=== PATIENT | female | born 1955 | race Caucasian/White ===

== ENCOUNTER → 2016-07-14 | Outpatient (CLI) | payer BC ==
[~2016-07-14] MED LIST: CZR50 PO; HYDR-5688 PO; IBUP-1050 PO; METO1TAB31 PO; OMEP20TA14 PO
--- NOTE | 2016-07-14 09:53 | DIAGNOSTIC IMAGING REPORT ---
MRI OF THE CERVICAL SPINE WITHOUT CONTRAST CLINICAL HISTORY: Left C4 radiculopathy. Neck pain radiating into upper extremities. COMPARISON: Cervical spine radiographs January 11, 2008. TECHNIQUE: Utilizing a 0.7 Mari magnet and dedicated coil, multiplanar, multiecho imaging of the cervical spine was performed without IV contrast. FINDINGS: There is straightening of the normal cervical lordosis. No marrow replacement is present. A T1 and T2 hyperintense lesion within the C3 vertebral body may reflect a hemangioma. Visualized portions of the posterior fossa are unremarkable. This study is mildly compromised by artifact. Cervical cord signal and caliber are normal. There is no intracanalicular mass or fluid collection. There are small disc protrusions at several levels within the upper thoracic spine that result in mild narrowing of the canal. Paravertebral soft tissues are unremarkable with exception of a 1.3 x 1.2 cm cystic abnormality adjacent to the left C3-C4 facet joint. This may reflect a synovial cyst. No intracanalicular mass or fluid collection is present. C2-C3: There is minimal posterior disc osteophyte complex and mild facet arthrosis. The central canal is patent. There is mild narrowing of the left neural foramen. C3-C4: Posterior disc osteophyte complex results in mild narrowing of the central canal. There is severe narrowing of the left neural foramen due to uncovertebral hypertrophy and facet arthrosis. There is also severe narrowing of the right neural foramen. C4-C5: The central canal is patent. There is mild narrowing of the left neural foramen. There is bony prominence adjacent to the left C4-C5 facet joint. A 2.2 cm mass-like abnormality at this level is shown on the sagittal T2-weighted sequence image 15 of 16 C5-C6: Mild posterior disc osteophyte results in mild narrowing of the central canal. There is moderate right and moderate to severe severe left neural foraminal stenosis predominantly due to uncovertebral hypertrophy. C6-C7: Posterior disc osteophyte complex results in mild narrowing of the central canal. There is moderate narrowing of both neural foramen. C7-T1: Central canal is patent. There is moderate to severe narrowing of the right neural foramen likely due to facet disease. IMPRESSION: 1. Mild multilevel degenerative disc disease with mild multilevel central canal stenosis. Normal cervical cord signal. 2. Severe multilevel facet arthrosis, most pronounced at the left C3-C4 and C4-C5 facet joints. A 1.3 x 1.2 cm cystic abnormality posterior to the left C3-C4 facet likely reflects a synovial cyst which is of doubtful significance as it is extracanalicular. 3. 2.2 cm bony mass-like abnormality associated with the left C4-C5 facet joint. This could simply represent bony hypertrophy related to facet arthrosis. An osseous lesion with soft tissue extension could appear similar. A CT of the cervical spine is recommended. 4. Severe multilevel neural foraminal stenosis, most pronounced at the C3-C4 level, as detailed above. Electronically signed by: Bernardo Forte M.D. 07/14/2016 9:51 AM Dictated Date/Time: 07/14/2016 9:03 AM
== END | disposition home or self-care (01) ==
LOC: C.OPENMRI 07:43
PROVIDERS: ATTEND Physical Medicine & Rehabilitation
DX: M48.02 Spinal stenosis, cervical region (principal); M54.12 Radiculopathy, cervical region; M12.9 Arthropathy, unspecified; R93.7 Abnormal findings on diagnostic imaging of other parts of musculoskeletal system

== ENCOUNTER → 2016-07-26 | Outpatient (CLI) | payer BC ==
--- NOTE | 2016-07-26 08:52 | DIAGNOSTIC IMAGING REPORT ---
CT SCAN OF THE CERVICAL SPINE CLINICAL HISTORY: Cervical spinal stenosis. COMPARISON STUDY: MRI of the cervical spine dated 07/14/2016. TECHNIQUE: CT scan of the cervical spine is performed from the skull base to the upper thoracic spine. Images are reviewed in the axial, sagittal, and coronal planes. IV contrast was not administered for this examination. CT DOSE: 286.98 mGy.cm FINDINGS: Skeletal structures: The skeletal structures are well mineralized. There is no evidence of fracture or subluxation involving the cervical spine. Vertebral body height and alignment are maintained. There is straightening of cervical lordosis. The odontoid process and lateral masses are intact. The atlantoaxial articulation is preserved noting productive degenerative change with bony overgrowth, sclerosis, and narrowing of the interval. The spinous processes appear intact. Anterior osteophytes are seen from C4 through C7. There is moderate multilevel cervical spondylosis. Uncovertebral and facet arthropathy contribute to neural foraminal narrowing at most levels. This is severe bilaterally at C3-C4 and on the left at C4-C5. The abnormality questioned at the left C4-C5 facet joint is consistent with bony overgrowth from facet arthropathy. There is erosive change with posterior fluid versus a synovial cyst seen at the left C3-C4 facet. No destructive bony lesion is seen. Intervertebral discs: Mild degenerative disc space narrowing seen from C4-C5 through C6-C7. The remaining disc spaces appear well maintained. Central canal: Small posterior disc osteophyte complexes at C3-C4, C4-C5, C5-C6, and C6-C7 likely contribute to minimal acquired compromise the central canal. This was better assessed on the 07/14/2016 MRI. Soft tissues: The prevertebral and paraspinous soft tissues are within normal limits. Calvarium: The visualized calvarium at the skull base appears intact. Brain parenchyma: Partially visualized brain parenchyma the skull base is within normal limits. Sinuses and mastoids: The visualized paranasal sinuses are clear. The mastoid air cells are well pneumatized. Lung apices: Clear as visualized. IMPRESSION: 1. There is no evidence of fracture or subluxation involving the cervical spine. 2. The bony abnormality questioned at the left C4-C5 facet joint corresponds to bony overgrowth from facet arthropathy. No concerning/destructive bony lesion is seen. 3. Multilevel cervical spondylosis as above. Electronically signed by: Otf Chang M.D. 07/26/2016 8:51 AM Dictated Date/Time: 07/26/2016 8:43 AM
== END | disposition home or self-care (01) ==
LOC: C.CTS 08:13
PROVIDERS: ATTEND Physical Medicine & Rehabilitation
DX: M48.02 Spinal stenosis, cervical region (principal); M54.12 Radiculopathy, cervical region

== ENCOUNTER → 2017-04-18 | Outpatient (CLI) | payer BC ==
--- NOTE | 2017-04-19 15:17 | MAMMOGRAPHY REPORT ---
BILATERAL DIGITAL SCREENING MAMMOGRAM TOMOSYNTHESIS WITH CAD: 04/18/2017 CLINICAL HISTORY: Routine screening. TECHNIQUE: Breast tomosynthesis in addition to standard 2D mammography was performed. Current study was also evaluated with a Computer Aided Detection (CAD) system. COMPARISON: Comparison is made to exams dated: 04/15/2016 mammogram, 04/03/2015 mammogram, 04/02/2014 mammogram, 03/29/2013 mammogram, 03/30/2012 mammogram, and 03/27/2012 mammogram - [facility]. BREAST COMPOSITION: The tissue of both breasts is almost entirely fatty. FINDINGS: There is stable nodularity in the breasts. No suspicious spiculated or irregular mass, arc hitectural distortion or cluster of microcalcifications is seen. IMPRESSION: ACR BI-RADS CATEGORY 1: NEGATIVE There is no mammographic evidence of malignancy. A 1 year screening mammogram is recommended. The pa tient will receive written notification of the results. Approximately 10% of breast cancers are not detected with mammography. A negative mammographic report should not delay biopsy if a clinically suggestive mass is present. Kelsey Patterson M.D. ay/:04/18/2017 16:14:59 [employer] Consultant: Elisa PEARSON(Anne)(M), [facility] letter sent: Normal 1/2 BI-RADS Code: ACR BI-RADS Category 1: Negative
== END | disposition home or self-care (01) ==
LOC: C.MAMM 07:30
PROVIDERS: ATTEND Obstetrics & Gynecology
DX: Z12.31 Encounter for screening mammogram for malignant neoplasm of breast (principal)

== ENCOUNTER → 2017-06-09 | Outpatient (CLI) | payer BC ==
[~2017-06-09] MED LIST changes: +MAGN250T9 PO; +METO-478 PO; -METO1TAB31 PO
== END | disposition home or self-care (01) ==
LOC: C.PAPS 09:38
PROVIDERS: ATTEND Obstetrics & Gynecology
DX: Z01.419 Encounter for gynecological examination (general) (routine) without abnormal findings (principal); N95.2 Postmenopausal atrophic vaginitis

== ENCOUNTER → 2017-06-16 | Day surgery (SDC) | payer BC ==
[2017-05-16 13:09] VITALS: Ht 167.6 cm; Wt 113.6 kg
[~2017-06-16] VITALS: Ht 167.6 cm; Wt 113.6 kg
[~2017-06-16] MED LIST changes: +IOPAMIDOL INJ 61% 15 ML VIAL ONE; +LIDOCAINE HCL 1% MPF 5 ML VIAL ONE; +SODIUM CHLORIDE 0.9% INJ 10 ML VIAL ONE
--- NOTE | 2017-06-16 14:46 | History & Physical Bridge - SC ---
H&P Re-Evaluation Bridge Note: I have examined the patient, reviewed the History & Physical and in the interval since the performance of the History & Physical I have noted the following changes of clinical significance: No changes noted
[2017-06-16 15:10] VITALS: TEMP 37.2
--- NOTE | 2017-06-16 15:14 | Discharge Instructions ---
Discharge Instructions Date of Service Jun 16, 2017. Visit Reason for Visit: Lumbar Radiculopathy Discharge Discharge Diagnosis / Problem: left leg pain Discharge Goals Goal(s): Decrease discomfort, Improve function Medications Stopped Medications Name(s): HELD IBUPROFEN FOR THREE DAYS Activity Recommendations Activity Limitations: resume your previous activity Anesthesia . Post Anesthesia Instructions: If you have had General Anesthesia or IV Sedation: * Do not drive today. * Resume driving when surgeon permits. * Do not make important decisions or sign legal documents today. * Call surgeon for: 1. Temperature elevations greater than 101 degrees F. 2. Uncontrollable pain. 3. Excessive bleeding. 4. Persistent nausea and vomiting. 5. Medication intolerance (nausea, vomiting or rash). * For nausea and vomiting use only clear liquids such as: tea, soda, bouillon until nausea subsides, then gradually increase diet as tolerated. * If you have any concerns or questions, call your surgeon's office. If physician is unavailable and it is an emergency, call 911 or go to the nearest emergency room. . Diet Recommendations Recommended Home Diet: resume previous diet Procedures Procedures Performed: Lumbar Epidural Steroid Injection Pending Studies Studies pending at discharge: no Medical Emergencies . Who to Call and When: Medical Emergencies: If at any time you feel your situation is an emergency, please call 911 immediately. . Non-Emergent Contact Non-Emergency issues call your: Specialist . . "Provider Documentation" section prepared by Marvin Cunningham. .
[2017-06-16 15:21] VITALS: BP 149/99; PULSE 97; O2SAT 96
--- NOTE | 2017-06-16 15:53 | OPERATIVE REPORT ---
DATE OF OPERATION: 06/16/2017 PREOPERATIVE DIAGNOSIS: L5-S1 disc disease with recurrent left S1 radiculopathy. POSTOPERATIVE DIAGNOSIS: Same. PROCEDURE: Left paramedian L5-S1 intralaminar epidural steroid injection under fluoroscopic guidance. SURGEON: Dr. Marvin Cunningham. INDICATIONS: The patient is a 61-year-old white female who has received an epidural injection for an S1 radiculopathy about 2 years ago. She reports she has done well since that time until recently the pain is starting to return and be problematic for her. She presents today for an epidural steroid injection to provide her with relief of ongoing radicular complaints. PHYSICAL EXAMINATION: Pleasant female seated comfortably. She has some tenderness to palpation of her left sciatic notch. She has pain inhibition with straight leg testing of her left lower extremity with decreased subjective sensation in the left L5 dermatomal distribution. CONSENT: Verbal and written consent was obtained from the patient. Risks and benefits were reviewed. Risks include but are not limited to epidural abscess, epidural hematoma, allergic reaction, dural puncture. The patient wishes to proceed. PROCEDURE: The patient was taken back to the special procedures room of [facility]. She was maintained in a prone position. Backside was cleansed with Betadine x3 and a dry sterile dressing was applied. Fluoroscope was used to identify the L5-S1 intralaminar space. Overlying skin on the left side was anesthetized with 4 mL of lidocaine 1% with a 25 gauge 1.5-inch needle. A 22 gauge 4.25-inch Tuohy needle was then directed down towards the intralaminar space. It was advanced under lateral fluoroscopic guidance. Loss of resistance was noted at a depth of 10.5 cm. Isovue-300 contrast 1 mL was injected in which demonstrated epidural uptake pattern which was confirmed with both AP and lateral views. She then underwent injection after negative aspiration of 40 mg of Depo-Medrol and 4 mL of preservative free sodium chloride. Injection was well tolerated. DISPOSITION: 1. The patient is taken out into the discharge recovery area where she will be discharged home once discharge criteria have been met. 2. Follow up in the [facility] office in 4 weeks' time. I attest to the content of the Intraoperative Record and any orders documented therein. Any exception s are noted below.
== END | disposition home or self-care (01) ==
LOC: X.SURG 13:55
PROVIDERS: ATTEND Physical Medicine & Rehabilitation
DX: M51.17 Intervertebral disc disorders with radiculopathy, lumbosacral region (principal)

== ENCOUNTER → 2017-08-22 | Outpatient (CLI) | payer BC ==
[~2017-08-22] MED LIST changes: -IOPAMIDOL INJ 61% 15 ML VIAL ONE; -LIDOCAINE HCL 1% MPF 5 ML VIAL ONE; -SODIUM CHLORIDE 0.9% INJ 10 ML VIAL ONE
== END | disposition home or self-care (01) ==
LOC: C.RDSM 20:25
PROVIDERS: ATTEND Physical Medicine & Rehabilitation
DX: M25.552 Pain in left hip (principal); Z91.030 Bee allergy status

== ENCOUNTER 2019-01-12 05:17 | Inpatient (IN) ==
--- NOTE | 2018-12-12 09:09 | Anesthesiology Consultation ---
Date of Service December 12, 2018 Assessment & Plan (1) Encounter for pre-operative examination: Chart Review Chart Review: Acceptable Risk for Surgery and Patient seen in Pre Admission Testing Teaching & Discussion Pre-Anesthesia Teaching/Discussion Notes: Instructed NPO after midnight before surgery,except medications with 15 cc of water. Medication instructions provided according to the PAT guidelines. History Surgery Operation Date: 01/12/19 08:35 Proposed Procedures p Left Anterior Total Hip Replacement - Aguila Saenz, Height/Weight Height: 5 ft 6 in Weight: 115.1 kg Allergies Allergy/AdvReac Type Severity Reaction Status Date / Time Penicillins AdvReac Mild YEAST Verified 12/08/18 11:07 INFECTION Sulfa (Sulfonamide AdvReac Unknown YEAST Verified 12/08/18 11:07 Antibiotics) INFECTION Medications Home Medications Medication Instructions Recorded Confirmed Last Taken hydrocodone-acetaminophen [[place]] 1 tab PO Q4 PRN 03/03/18 12/08/18 05/02/18 losartan 50 mg PO QAM 03/03/18 12/08/18 07/27/18 metoprolol succinate 25 mg PO QAM 03/03/18 12/08/18 07/27/18 omeprazole 20 mg PO HS 03/03/18 12/08/18 05/02/18 Cbd + Thc Oil 1 dose PO QAM 12/08/18 12/08/18 Unknown diclofenac sodium 75 mg PO BID 12/08/18 12/08/18 Unknown Past Medical History Medical History Cancer BCC, SCC Chronic back pain GERD (gastroesophageal reflux disease) CONTROLLED Hypertension Morbid obesity Spinal stenosis CERVICAL/LUMBAR Exercise / Class Metabolic Activity III < 4 Walking/Shop/Light housework Past Family History Family History Father Family history of diabetes mellitus Past Surgical History Surgical History H/O Moh's micrographic surgery for skin cancer X3 H/O arthroscopy of left knee H/O arthroscopy of right knee H/O removal of cyst RIGHT WRIST History of appendectomy History of cholecystectomy History of colonoscopy History of tooth extraction WISDOM TEETH Past Anesthesia History No Hx of Anesthesia Complications (EXCEPT PONV) and No Family Hx of Anesthesia Complications History of PONV No Hx of Motion Sickness and History of PONV Social History Smoking Status: Former smoker tobacco type: cigarettes Do You Dip or Chew Tobacco: No Smoking End Date: QUIT 1997 Hx Alcohol Use: Yes Alcohol type: beer, wine and hard liquor alcohol intake frequency: a few times a month Hx Substance Use: Yes substance use type: marijuana Substance Use Type Other:: medical (for joint pain) oil under tongue daily; aware of [facility] protocol Review of Systems Reflux controlled. Patient denies chest pain, shortness of breath, cough, wheezing, palpitations. Physical Exam Vital Signs VITALS BP 120/82 P 86 TEMP 98.4 SP02 95%RA RESP 18 PHYSICAL Decreased cervical extension 2/2 arthritis Full TMJ range of motion. TMD 3 finger breaths Mallampati Score 2 Dentition: missing molars, several crowns "all over." 2 permanent implants on sides Lungs: clear throughout to auscultation Cardiac: regular rate and rhythm, no murmurs noted Spine: normal Carotid arteries: negative bruit Extremities: no edema Testing Laboratory Results 12/12/18 09:30 12/12/18 11:14 PT 9.9 Seconds (9.0-12.0) 12/12/18 09:30 INR 1.0 (0.9-1.1) 12/12/18 09:30 APTT 24.8 Seconds (21.0-31.0) 12/12/18 09:30 Blood Type A Positive 12/12/18 09:30 Antibody Screen NEGATIVE 12/12/18 09:30 12/27/18 SODIUM 142 POTASSIUM 5.1 CHLORIDE 104 CO2 26 BUN 18 CREATININE 1.2 (PCP repeated labs; creatinine significantly increased on recheck) GLUCOSE 95 Electrocardiogram Date: 12/12/18 Findings: + NSR @ (84) Chest X-Ray Date: 12/12/18 Findings: + NAD Atherosclerosis of the aortic arch.
--- NOTE | 2018-12-12 09:12 | PAT Medication Instructions ---
Medication Instructions Date of Service December 12, 2018 Home Medications hydrocodone-acetaminophen [[place]] 1 tab PO Q4 PRN losartan 50 mg PO QAM metoprolol succinate 25 mg PO QAM omeprazole 20 mg PO HS Cbd + Thc Oil 1 dose PO QAM diclofenac sodium 75 mg PO BID Continue as directed Cbd + Thc Oil 1 dose PO QAM ASK your surgeon for instructions diclofenac sodium 75 mg PO BID DO NOT take the morning of surgery losartan 50 mg PO QAM Take morning of surgery With a small sip of water, OTHERWISE NOTHING TO EAT OR DRINK AFTER MIDNIGHT: hydrocodone-acetaminophen [[place]] 1 tab PO Q4 PRN (okay to take up to 4 hours prior to surgery if needed) metoprolol succinate 25 mg PO QAM Take evening before surgery hydrocodone-acetaminophen [[place]] 1 tab PO Q4 PRN (if needed) omeprazole 20 mg PO HS Other Notes If you have any questions please call us at [phone] or [phone] or [phone] or [phone]
--- NOTE | 2018-12-12 10:18 | XRay Report ---
XR chest 2V routine CLINICAL HISTORY: 63 years-old Female presenting with preoperative evaluation. TECHNIQUE: PA and lateral views of the chest were obtained. COMPARISON: 01/11/2008. FINDINGS: Atherosclerosis of the aortic arch. Cardiac silhouette normal in size. Lungs and pleural spaces clear . Degenerative changes of the thoracic spine. Cholecystectomy clips noted. IMPRESSION: 1. No acute cardiopulmonary disease. Electronically signed by: Shaan Bal M.D. 12/12/2018 10:16 AM
[2018-12-12 11:36] LABS: Basophils # (auto) 0.01 K/uL (0-0.2); Basophils % (auto) 0.2 %; Eosinophils # (auto) 0.04 K/uL (0-0.5); Eosinophils % (auto) 0.8 %; Hematocrit (blood only) 37.1 % (37-47); Hemoglobin 12.4 g/dL (12.0-16.0); Immature Granulocytes # (auto) 0.01 K/uL (0.00-0.02); Immature Granulocytes % (auto) 0.2 %; Lymphocytes # (auto) 1.75 K/uL (1.2-3.4); Lymphocytes % (auto) 35.8 %; Mean Corpuscular Hgb Conc 33.4 g/dL (32-36); Mean Corpuscular Volume 90.9 fL (80-100); Mean Platelet Volume 10.1 fL (7.4-10.4); Monocytes # (auto) 0.34 K/uL (0.11-0.59); Neutrophils # (auto) 2.74 K/uL (1.4-6.5); Platelet Count 259 K/uL (130-400); RDW Coefficient of Variation 12.5 % (11.5-14.5); RDW Standard Deviation 41.9 fL (36.4-46.3); Red Blood Count 4.08 M/uL (4.2-5.4); White Blood Count 4.89 K/uL (4.8-10.8)
[2018-12-12 11:48] LABS: Partial Thromboplastin Ratio 0.9; Partial Thromboplastin Time 24.8 Seconds (21.0-31.0); Prothrombin Time 9.9 Seconds (9.0-12.0)
[2018-12-12 12:02] LABS: BUN Creatinine Ratio 24.8 (10-20); Calcium 10.1 mg/dl (8.5-10.1); Creatinine Clr Calc Pharmacy 48.2 ml/min; Est GFR (African American) 40.5; Est GFR (Non-African American) 34.9; Potassium 4.5 mmol/L (3.5-5.1)
--- NOTE | 2019-01-11 15:48 | History & Physical Report ---
Date of Service January 11, 2019 Assessment & Plan (1) Osteoarthritis of left hip: We will proceed with a left anterior total hip arthroplasty. Postoperatively she will be placed on aspirin for DVT prophylaxis and kept overnight in the hospital for postoperative medical management. She plans to use energy physical therapy upon discharge. Present on Admission?: Yes History of Present Illness Chief Complaint: Primary osteoarthritis of the left hip Primary Care Provider: Barbie Ordaz DO [place] is a pleasant 63-year-old female who is been dealing with chronic left hip pain. It is been going on for several years. X-rays and physical examination are diagnostic for primary osteoarthritis of her left hip. After failing extensive conservative treatment, and after discussions in the office, she is elected to proceed with a left total hip arthroplasty. Allergies Allergy/AdvReac Type Severity Reaction Status Date / Time Penicillins AdvReac Mild YEAST Verified 12/08/18 11:07 INFECTION Sulfa (Sulfonamide AdvReac Mild YEAST Verified 01/08/19 12:26 Antibiotics) INFECTION Home Medications Home Medications Medication Instructions Recorded Confirmed Type hydrocodone-acetaminophen [[place]] 1 tab PO Q4 PRN 03/03/18 12/08/18 History losartan 50 mg PO QAM 03/03/18 12/08/18 History metoprolol succinate 25 mg PO QAM 03/03/18 12/08/18 History omeprazole 20 mg PO HS 03/03/18 12/08/18 History Cbd + Thc Oil 1 dose PO QAM 12/08/18 12/08/18 History diclofenac sodium 75 mg PO BID 12/08/18 12/08/18 History Past Med/Surg History Medical History Cancer BCC, SCC Chronic back pain GERD (gastroesophageal reflux disease) CONTROLLED Hypertension Morbid obesity Spinal stenosis CERVICAL/LUMBAR Surgical History H/O Moh's micrographic surgery for skin cancer X3 H/O arthroscopy of left knee H/O arthroscopy of right knee H/O removal of cyst RIGHT WRIST History of appendectomy History of cholecystectomy History of colonoscopy History of tooth extraction WISDOM TEETH Family History Father Family history of diabetes mellitus Social History Preferred Language: Sami Communication Ability: Effective Technical Solution Architect Required: No Beliefs That Will Affect Care: None Current Living Situation: Spouse Other Information That Helps Us Care for You: No Feels Safe at Home: Yes Safety Concerns: Feels Safe At This Time Smoking Status: Former smoker Tobacco Type: cigarettes Do You Dip or Chew Tobacco: No Smoking End Date: QUIT 1997 Second Hand Exposure: No Tobacco Cessation Education Requested by Patient: No Hx Alcohol Use: Yes Alcohol type: beer, wine and hard liquor Hx Substance Use: Yes substance use type: marijuana Substance Use Type Other:: medical (for joint pain) oil under tongue daily; aware of [facility] protocol Last Used Substance Other:: USES DAILY IN AM Review of Systems All systems reviewed & are unremarkable except as noted in HPI & below Physical Exam Constitutional: WD/WN, vitals as above Eyes: PERRL, conjunctivae normal, anicteric sclerae ENMT: external ear and nose normal, oropharynx normal Neck: trachea midline, no thyromegaly Respiratory: normal respiratory effort Cardiovascular: RRR, no murmur, no edema Gastrointestinal (Abdomen): normal bowel sounds, soft, nontender, no hepatosplenomegaly Musculoskeletal: Physical examination of the left hip reveals decreased range of motion with flexion, internal and external rotation. There is significant groin pain with forced internal rotation of the hip his leg lengths are essentially equal. Psychiatric: A+Ox3, euthymic affect Results & Data Diagnostic Findings Radiographs of the left hip and pelvis demonstrate advanced osteoarthritis with joint space narrowing osteophyte formation and bnio-[id number]-[id number] articulation.
[2019-01-12] MEDS ORDERED: TRANEXAMIC ACID 1,000 MG **IV Pre-op IV SCH (06:00)
[2019-01-12] MEDS ORDERED: LR 60ML/HR IV SCH (06:00)
[2019-01-12] MEDS ORDERED: ROPIVACAINE 0.5% HCL/PF 150 MG, BUPIVACAINE 0.5% MPF 30 ML, EPINEPHrine 30MG/30ML (OR U... INSTIL SCH (06:00)
[2019-01-12] MEDS ORDERED: GABAPENTIN 300 MG CAP PO SCH (06:00)
[2019-01-12] MEDS ORDERED: CEFAZOLIN 2000MG 2,000 MG/15 ML SYR IV SCH (06:00)
[2019-01-12] MEDS ORDERED: LR 500ML BOLUS, THEN 15ML/HR IV SCH (06:00)
[2019-01-12] MEDS ORDERED: ACETAMINOPHEN 500 MG TAB PO SCH (06:00)
[2019-01-12] MEDS ORDERED: FAMOTIDINE 20 MG TAB PO SCH (06:00)
--- NOTE | 2019-01-12 06:28 | History & Physical Bridge Note ---
Date of Service January 12, 2019 History & Physical Bridge Note I have examined the patient, reviewed the History & Physical and in the interval since the performance of the History & Physical I have noted the following changes of clinical significance: no changes noted
[2019-01-12] MEDS ORDERED: TRANEXAMIC ACID 1,000 MG **IV Intra-op IV SCH (06:30)
[2019-01-12] MEDS ORDERED: BUPIVACAINE 0.5 % 5 MG/1 ML PF 10ML VIAL ONE (06:30)
[2019-01-12] MEDS ORDERED: fentaNYL citrate 100 MCG/2 ML VIAL ONE (06:37)
[2019-01-12] MEDS ORDERED: MIDAZOLAM HCL 1 MG/ML 2ML VIAL ONE ×2 (06:37→07:20)
[2019-01-12] MEDS ORDERED: ORTHO JOINT ANESTHETIC ONE (06:46)
[2019-01-12] MEDS ORDERED: LIDOCAINE HCL 2% 2 ML VIAL/AMP(20MG/ML) INFIL ONE (07:26)
[2019-01-12] MEDS ORDERED: PROPOFOL IV EMULSION 10 MG/ML 20 ML VIAL IV ONE ×3 (07:26→08:45)
[2019-01-12] MEDS ORDERED: ONDANSETRON INJ 2 MG/ML 2 ML VIAL ONE (07:26)
[2019-01-12] MEDS ORDERED: fentaNYL citrate 100 MCG/2 ML VIAL IV PRN (07:31)
[2019-01-12] MEDS ORDERED: DEXAMETHASONE SOD INJ 4 MG/ML VIAL IV PRN (07:31)
[2019-01-12] MEDS ORDERED: HYDROmorphone INJ 2 MG/ML SYR/VIAL IV PRN (07:31)
[2019-01-12] MEDS ORDERED: ONDANSETRON INJ 2 MG/ML 2 ML VIAL IV PRN ×2 (07:31→10:14)
[2019-01-12] MEDS ORDERED: METOCLOPRAMIDE HCL INJ 5 MG/ML 2 ML VIAL IV PRN ×2 (07:31→10:14)
[2019-01-12] MEDS ORDERED: ePHEDrine sulfate 50 MG/ML AMP IV PRN (07:31)
[2019-01-12] MEDS ORDERED: ATROPINE SULFATE 0.1 MG/ML 10ML SYR IV PRN (07:31)
--- NOTE | 2019-01-12 09:04 | Operative Report ---
Post Operative Report Pre & Post Diagnosis Operation Date: 01/12/19 07:00 Pre-Op Diagnosis: LEFT HIP DEGENERATIVE JOINT DISEASE Post-Op Diagnosis: LEFT HIP DEGENERATIVE JOINT DISEASE Procedure Operation Date: 01/12/19 07:00 Actual Procedures p Left Anterior Total Hip Replacement(Left) - Aguila Saenz DO Surgeon Aguila Saenz DO Concrete Buster Operator Aguila Watkins PAC Estimated Blood Loss 200 Findings Consistent with Post-Op Diagnosis Specimens Left femoral head Complications none Disposition Disposition: Recovery Room Indications Houston is a pleasant 63-year-old female who presented my office with complaints of chronic increasing left hip and groin pain. X-rays and clinical examination were diagnostic for primary osteoarthritis of the left hip. After failing conservative treatment, she elected to proceed with a left total hip arthroplasty. Description of Procedure Implants used Biomet Taperloc total hip arthroplasty system with a size 12 standard offset Taperloc stem, a 50 mm G7 cup with a 25mm screw, an E1 polyethylene liner, a 36 mm ceramic head with a +3 neck. Patient arrived at the hospital for the above procedure. They were seen in the preoperative holding area and the operative extremity was identified and signed. They were given a spinal anesthetic. They were given a preoperative antibiotic and TXA. They were taken back To the operating room and laid on the table in the supine position. The leg was brought out through a Puristst leg positioner. The hip was then prepped and draped in sterile fashion. A timeout was done and the patient in upper extremities properly identified. An anterior approach was used. Dissection was taken down through the fascia and the tensor muscle belly was retracted laterally and the rectus was retracted medially. The circumflex vessels were identified and ligated. The capsule was then incised and tagged for later repair. The femoral neck was then cut and the femoral head was removed. The acetabulum was exposed. Time was spent doing a complete circumferential labral release. Sequential reaming of the acetabulum up to a size 49 reamer was done. Final reamings were done under fluoroscopy to ensure appropriate version. A Biomet 50 mm G7 cup was then impacted into place. A single 25 mm screw was placed. The E1 polyethylene liner was then snapped into place. Surrounding soft tissues were then injected with 100 cc of an orthopedic pain control cocktail. The proximal femur was then exposed. Sequential broaching up to a size 12 broach was done. Off that broach a size 36 head with a +3 neck was trialed. The hip was reduced and fluoroscopic images showed anatomic alignment of the implants in acceptable length. The broach was removed. The final size 12 standard offset Taperloc stem was then impacted into place. A ceramic 40 mm head with a +3 neck was then impacted into place in the hip was reduced. Final fluoroscopic images showed anatomic reduction of the hip. The capsule was then closed with #1 Vicryl suture. A dilute betadyne lavage was then done for 3 minutes. The joint was then irrigated with normal saline solution. The fascia was closed with #1 PDS suture. Skin was closed with 2-0 Vicryl, iraida, and a Jennifer VAC dressing. The patient was then transferred to a hospital bed and taken to the post anesthesia care unit in stable condition. They tolerated the procedure well. I attest to the content of the Intraoperative Record and any orders documented therein. Any exceptions are noted below.
--- NOTE | 2019-01-12 09:23 | Fluoroscopy Report ---
FL hip LT 1V CLINICAL HISTORY: 63 years-old Female presenting with LT ANTERIOR TOTAL HIP. TECHNIQUE: 2 fluoroscopic image(s) recorded as part of an intraoperative procedure. COMPARISON: 08/22/2017. FINDINGS/IMPRESSION: Postsurgical changes of total left hip arthroplasty. No malalignment. Please see surgical report for further details. Dose area product (mGy.cm^2): 1.7775. Fluoroscopy time: 25.5 seconds. Number or time of high level fluoroscopy (HLF), digital spot, or digital subtraction images: 0. Electronically signed by: Shaan Bal M.D. 01/12/2019 9:21 AM
--- NOTE | 2019-01-12 09:58 | XRay Report ---
SINGLE VIEW PELVIS; SINGLE VIEW LEFT HIP CLINICAL HISTORY: Postoperative examination. FINDINGS: An AP portable view of the hips and pelvis with a crosstable lateral portable view of the l eft hip are obtained. A bipolar left hip arthroplasty is in near-anatomic alignment. A single cortic al lag screw transfixes the acetabular cup. No acute fracture is identified. There are expected posto perative changes overlying the left hip including skin clips, subcutaneous gas, a surgical drain, and soft tissue swelling. Phleboliths are observed in the pelvis. IMPRESSION: Expected postoperative findings status post left hip arthroplasty. No acute fracture is s een. Electronically signed by: Otf Chang M.D. 01/12/2019 9:57 AM
[2019-01-12] MEDS ORDERED: NALOXONE HCL 0.4 MG/1 ML VIAL/CARP IV PRN (10:14)
[2019-01-12] MEDS ORDERED: BISACODYL 10 MG SUPP PR PRN (10:14)
[2019-01-12] MEDS ORDERED: MAGNESIUM HYDROXIDE SUSP 30 ML UDC PO PRN (10:14)
[2019-01-12] MEDS ORDERED: HYDROmorphone INJ 0.5 MG/0.5 ML SYR IV PRN (10:14)
[2019-01-12] MEDS ORDERED: SODIUM CHLORIDE 0.9% 1000ML 1,000 ML IV SCH (10:14)
--- NOTE | 2019-01-12 10:35 | Anesthesiology Progress Note ---
Date of Service January 12, 2019 Anesthesia Post Procedure Vital Signs Vital Signs: Temp Pulse Pulse Resp BP Pulse Ox 01/12/19 10:00 36.6 C 82 16 134/86 99 01/12/19 09:50 76 22 145/94 H 99 01/12/19 09:35 36.3 C L 80 20 153/89 H 100 01/12/19 09:25 81 17 149/89 H 100 01/12/19 09:17 36.6 C 88 17 141/83 H 100 01/12/19 05:43 37 C 100 H 18 157/87 H 97 Pain Intensity Left Hip: Pain Intensity: 4 Transfer of Care Handoff Completed per policy Notes Mental Status: alert / awake / arousable and participated in evaluation Patient Amnestic to Procedure: Yes Nausea / Vomiting: adequately controlled Pain: adequately controlled Airway Patency, RR, SpO2: stable & adequate BP & HR: stable & adequate Hydration State: stable & adequate Neuraxial Anesthesia: was administered and sensory block is resolving Anesthetic Complications: no major complications apparent
[2019-01-12] MEDS: KETOROLAC 30 MG/ML VIAL IV SCH ×3 (11:00→22:02)
[2019-01-12] MEDS: ACETAMINOPHEN 500 MG TAB PO SCH ×2 (13:40→21:00)
[2019-01-12] MEDS: CEFAZOLIN 2000MG 2,000 MG/15 ML SYR IV SCH ×2 (13:41→22:01)
[2019-01-12] MEDS: OXYCODONE HCL IR 5 MG TAB (IMMEDIATE RELEASE) PO PRN ×2 (15:42→19:53)
[2019-01-12] MEDS: DOCUSATE SODIUM 100 MG CAP PO SCH (20:59)
[2019-01-12] MEDS: ASPIRIN 81 MG ECTAB PO SCH (21:00)
[2019-01-12] MEDS ORDERED: PANTOprazole 40 MG TAB PO SCH (21:00)
[2019-01-12] MEDS ORDERED: SENNA 8.6 MG TAB PO SCH (21:00)
[2019-01-13] MEDS: ACETAMINOPHEN 500 MG TAB PO SCH (05:39)
[2019-01-13] MEDS: KETOROLAC 30 MG/ML VIAL IV SCH ×2 (05:40→12:12)
[2019-01-13 06:27] LABS: Eosinophils # (auto) 0.01 K/uL (0-0.5); Eosinophils % (auto) 0.1 %; Hematocrit (blood only) 32.9 % (37-47); Hemoglobin 10.7 g/dL (12.0-16.0); Immature Granulocytes # (auto) 0.02 K/uL (0.00-0.02); Immature Granulocytes % (auto) 0.2 %; Lymphocytes # (auto) 1.34 K/uL (1.2-3.4); Lymphocytes % (auto) 14.4 %; Mean Corpuscular Hgb Conc 32.5 g/dL (32-36); Mean Corpuscular Volume 92.7 fL (80-100); Mean Platelet Volume 9.9 fL (7.4-10.4); Monocytes # (auto) 0.82 K/uL (0.11-0.59); Monocytes % (auto) 8.8 %; Neutrophils # (auto) 7.12 K/uL (1.4-6.5); Neutrophils % (auto) 76.5 %; Platelet Count 218 K/uL (130-400); RDW Coefficient of Variation 12.7 % (11.5-14.5); RDW Standard Deviation 43.4 fL (36.4-46.3); Red Blood Count 3.55 M/uL (4.2-5.4); White Blood Count 9.31 K/uL (4.8-10.8)
[2019-01-13 06:59] LABS: BUN Creatinine Ratio 19.7 (10-20); Calcium 8.7 mg/dl (8.5-10.1); Creatinine Clr Calc Pharmacy 71.6 ml/min; Est GFR (African American) 64.9
[2019-01-13] MEDS: DOCUSATE SODIUM 100 MG CAP PO SCH (07:54)
[2019-01-13] MEDS: OXYCODONE HCL IR 5 MG TAB (IMMEDIATE RELEASE) PO PRN (07:54)
[2019-01-13] MEDS: ASPIRIN 81 MG ECTAB PO SCH (07:55)
--- NOTE | 2019-01-13 08:59 | Orthopedic Progress Note ---
Date of Service January 13, 2019 Assessment & Plan (1) Osteoarthritis of left hip: Overall she is doing very well. She is not having too much pain in the left hip. She is already been up and ambulating. She will be seen by physical therapy today for further ambulation and range of motion exercises. She is on aspirin for DVT prophylaxis. She can be discharged home later this morning with [facility]. She will follow-up with orthopedics in 2 weeks. Present on Admission?: Yes Last Conrad was seen and examined at bedside this morning. Overall she is doing very well. She is not having much pain in the left hip. She is already been up and ambulating. She was able to get some sleep last night. She has no complaints. Physical Exam Musculoskeletal: On physical examination of the left hip, the Jennifer VAC dressing is to suction. Her leg lengths are equal. She is active dorsiflexion and plantarflexion of her left ankle. Results & Data Vital Signs (Past 12 Hours) Vital Signs Temp Pulse Resp BP Pulse Ox 01/13/19 07:26 36.7 C 88 16 150/89 H 96 01/13/19 03:15 36.3 C L 101 H 18 113/67 97 01/12/19 23:00 36.6 C 87 18 172/82 H 96 Laboratory Results H & H 12/12/18 01/13/19 Range/Units 09:30 05:27 Hgb 12.4 10.7 L (12.0-16.0) g/dL Hct 37.1 32.9 L (37-47) % Coagulation 12/12/18 Range/Units 09:30 INR 1.0 (0.9-1.1) Diagnostic Findings Postoperative x-rays of the left hip show the prosthesis to be in anatomic alignment without any evidence of fracture, dislocation, or loosening.
[2019-01-13] MEDS ORDERED: MULTIVITAMIN TAB PO SCH (09:00)
[2019-01-13] MEDS ORDERED: LOSARTAN POTASSIUM 50 MG TAB PO SCH (09:00)
[2019-01-13] MEDS ORDERED: METOPROLOL SUCC 25MG EXT REL TAB PO SCH (09:00)
--- NOTE | 2019-01-13 09:00 | Discharge Summary ---
Date of Service January 13, 2019 Admission HPI Per Admitting Provider Houston is a pleasant 63-year-old female who is been dealing with chronic left hip pain. It is been going on for several years. X-rays and physical examination are diagnostic for primary osteoarthritis of her left hip. After failing extensive conservative treatment, and after discussions in the office, she is elected to proceed with a left total hip arthroplasty. Specialty Data Orthopedic H & H 12/12/18 01/13/19 Range/Units 09:30 05:27 Hgb 12.4 10.7 L (12.0-16.0) g/dL Hct 37.1 32.9 L (37-47) % Coagulation 12/12/18 Range/Units 09:30 INR 1.0 (0.9-1.1) Discharge Data Consultations 01/13/19 08:00 Consult Case Management - Discharge Planning Routine Procedures Performed Operation Date: 01/12/19 07:00 Actual Procedures p Left Anterior Total Hip Replacement(Left) - Aguila Saenz DO Hospital Course (1) Osteoarthritis of left hip: On January 12, 2019 Houston arrived at [facility] in the hospital and underwent a left anterior total hip arthroplasty without complication. She had a spinal anesthetic. Postoperatively she was started on aspirin for DVT prophylaxis and discharged to general orthopedic floors. Her hospital course was uneventful. On postop day #1 her H&H was stable and her pain was well controlled. She was able to ambulate well with physical therapy. She was then discharged home with [facility]. She will follow-up with orthopedics in 2 weeks. Discharge Instructions Home Medications Medication Instructions Recorded Confirmed hydrocodone-acetaminophen [[place]] 1 tab PO Q4 PRN 03/03/18 01/12/19 losartan 50 mg PO QAM 03/03/18 01/12/19 metoprolol succinate 25 mg PO QAM 03/03/18 01/12/19 omeprazole 20 mg PO HS 03/03/18 01/12/19 Cbd + Thc Oil 1 dose PO QAM 12/08/18 01/12/19 diclofenac sodium 75 mg PO BID 12/08/18 01/12/19 Previous Rx's Medication Instructions Recorded aspirin [Ecotrin Low Strength] 81 mg PO BID #84 tab 01/13/19 hydrocodone-acetaminophen 1 tab PO Q6H PRN #40 tab 01/13/19
--- NOTE | 2019-01-13 10:17 | Anesthesiology Progress Note ---
Date of Service January 13, 2019 Anesthesia Post Procedure Vital Signs Vital Signs: Temp Pulse Pulse Resp BP Pulse Ox 01/13/19 07:26 36.7 C 88 16 150/89 H 96 01/13/19 03:15 36.3 C L 101 H 18 113/67 97 01/12/19 23:00 36.6 C 87 18 172/82 H 96 01/12/19 15:27 36.6 C 86 17 143/87 H 96 01/12/19 12:44 36.8 C 93 H 20 136/84 98 01/12/19 11:52 36.6 C 93 H 20 127/80 97 01/12/19 10:44 36.6 C 88 20 144/87 H 98 01/12/19 10:41 86 18 145/86 H 98 Pain Intensity Left Hip: Pain Intensity: 5 Transfer of Care Handoff Completed per policy Notes Mental Status: alert / awake / arousable and participated in evaluation Patient Amnestic to Procedure: Yes Nausea / Vomiting: adequately controlled Pain: adequately controlled Airway Patency, RR, SpO2: stable & adequate BP & HR: stable & adequate Hydration State: stable & adequate Anesthetic Complications: no major complications apparent
== END 2019-01-13 12:31 | disposition home or self-care (01) | DRG 470 ==
LOC: ASU 05:17 → 3E 09:23

== ENCOUNTER 2023-05-24 07:30 | Observation (INO) ==
--- NOTE | 2023-05-12 09:54 | PAT Medication Instructions ---
Medication Instructions Date of Service May 12, 2023 Home Medications Medication Instructions Recorded tizanidine 4 mg tablet 4 mg PO BID PRN muscle spasticity 10/08/22 #30 tabs hydrocodone 5 mg-acetaminophen 325 1 tab PO Q6H PRN pain #15 tabs 03/15/23 mg tablet losartan 50 mg tablet 50 mg PO QAM metoprolol succinate 25 mg tablet,extended release 24 hr 25 mg PO QAM omeprazole 20 mg tablet,delayed release 20 mg PO HS tizanidine 4 mg tablet 4 mg PO BID PRN acetaminophen 500 mg capsule 1,000 mg PO BID hydrocodone 5 mg-acetaminophen 325 mg tablet 1 tab PO Q6H PRN ibuprofen 200 mg tablet 200 mg PO Q6H PRN ASK your surgeon for instructions ibuprofen 200 mg tablet 200 mg PO Q6H PRN DO NOT take the morning of surgery losartan 50 mg tablet 50 mg PO QAM Take morning of surgery With a small sip of water, OTHERWISE NOTHING TO EAT OR DRINK AFTER MIDNIGHT: metoprolol succinate 25 mg tablet,extended release 24 hr 25 mg PO QAM tizanidine 4 mg tablet 4 mg PO BID PRN(if needed) acetaminophen 500 mg capsule 1,000 mg PO BID hydrocodone 5 mg-acetaminophen 325 mg tablet 1 tab PO Q6H PRN(if needed) Take evening before surgery omeprazole 20 mg tablet,delayed release 20 mg PO HS tizanidine 4 mg tablet 4 mg PO BID PRN(if needed) acetaminophen 500 mg capsule 1,000 mg PO BID hydrocodone 5 mg-acetaminophen 325 mg tablet 1 tab PO Q6H PRN(if needed) Other Notes If you have any questions please call us at [phone] or [phone] or [phone] or [phone]
--- NOTE | 2023-05-18 12:45 | Anesthesiology Consultation ---
Date of Service May 18, 2023 Assessment & Plan (1) Encounter for pre-operative examination: Plan - Patient states that she had severe PONV with general anesthesia for R TKA 2021, anesthesia report indicates that spinal was completed however patient c/o pain upon incision and was converted to general anesthesia. Patient would like spinal placement and does not want students or interns involved in neuraxial anesthesia. - anesthesia record 05/17/22: SAB L4-L5 1 attempts + PNB. Converted to general anesthesia once patient c/o pain upon incision: LMA#4. - Outpatient joint assessment: Patient is currently scheduled for inpatient pathway. If re-evaluated and patient/surgeon requests outpatient pathway, patient is not recommended candidate for outpatient joint program from anesthesia standpoint. Chart Review Chart Review: Acceptable Risk for Surgery and Patient seen in Pre Admission Testing Teaching & Discussion Pre-Anesthesia Teaching/Discussion Notes: Instructed NPO after midnight before surgery, except medications with 15 cc of water. Medication instructions provided according to the PAT guidelines. History Surgery Operation Date: 05/24/23 09:00 Proposed Procedures p Right Anterior Total Hip Arthroplasty - Aguila Saenz DO Height/Weight Height: 5 ft 6 in Weight: 121.7 kg Allergies Allergy/AdvReac Type Severity Reaction Status Date / Time Penicillins AdvReac Unknown YEAST Verified 05/11/23 10:34 INFECTION Sulfa (Sulfonamide AdvReac Unknown YEAST Verified 05/11/23 10:34 Antibiotics) INFECTION Medications Home Medications Medication Instructions Recorded Confirmed Last Taken losartan 50 mg tablet 50 mg PO QAM 03/03/18 05/11/23 05/16/22 10:00 metoprolol succinate 25 mg 25 mg PO QAM 03/03/18 05/11/23 05/17/22 04:30 tablet,extended release 24 hr omeprazole 20 mg tablet,delayed 20 mg PO HS 03/03/18 05/11/23 05/16/22 23:00 release tizanidine 4 mg tablet 4 mg PO BID PRN muscle spasticity 10/08/22 05/11/23 Unknown #30 tabs acetaminophen 500 mg capsule 1,000 mg PO BID 11/24/22 05/11/23 Unknown hydrocodone 5 mg-acetaminophen 325 1 tab PO Q6H PRN pain #15 tabs 03/15/23 05/11/23 Unknown mg tablet ibuprofen 200 mg tablet 200 mg PO Q6H PRN Pain 05/11/23 05/11/23 Unknown Past Medical History Medical History (Updated 05/18/23 @ 12:54 by Mily Durbin PA-C) Sleep apnea untreated at this time Lumbar radiculopathy Pre-diabetes no meds Seasonal allergies Nausea and vomiting after administration of anesthetic agent denies needing scop patch History of colon polyps BENIGN Borderline high cholesterol Morbid obesity Cancer BCC, SCC-shoulders, face and scalp Spinal stenosis CERVICAL (LIMITED WITH MOVEMENT TO THE RIGHT) /LUMBAR Chronic back pain GERD (gastroesophageal reflux disease) controlled, stable per pt Hypertension controlled, stable per pt Patient denies h/o stroke, seizures, heart attack, heart failure, blood clots/DVTs or blood transfusions. Exercise / Class Metabolic Activity II 4-5 Yardwork/Stairs/Walk up hill (ambulates with cane, denies chest discomfort or shortness of breath with 1 FOS) Past Family History Family History Father Family history of diabetes mellitus Other No family history of adverse response to anesthesia Patient's father is Past Surgical History Surgical History Status post right knee replacement (~04/2022) History of left hip replacement 01/12/19: SAB at L3-L4 1 attempt. H/O removal of cyst RIGHT WRIST H/O arthroscopy of right knee H/O arthroscopy of left knee History of cholecystectomy History of appendectomy History of colonoscopy H/O Moh's micrographic surgery for skin cancer X3 History of tooth extraction WISDOM TEETH Past Anesthesia History No Hx of Anesthesia Complications and No Family Hx of Anesthesia Complications History of PONV No Hx of Motion Sickness and History of PONV (denies needing scop patch) Social History Smoking Status: Former smoker tobacco type: cigarettes Do You Dip or Chew Tobacco: No Smoking End Date: quit 1995 Hx Alcohol Use: Yes Alcohol type: beer, wine and hard liquor alcohol intake frequency: a few times a month Hx Substance Use: No substance use type: does not use Review of Systems Patient denies chest pain, shortness of breath, dyspnea on exertion, fever, chills, cough, wheezing, or palpitations. Physical Exam Vital Signs Vitals BP 138/87 P 78 TEMP 98.2 SP02 96% on RA RESP 17 Physical Patient resting comfortably in chair in no acute distress, alert and oriented, responding appropriately throughout visit Full cervical extension range of motion without pain TMD 3.5 finger breadths Mallampati Score 2 Dentition: several caps/crowns, upper left side implants; denies chipped or loose teeth, or bridges Lungs: normal respiratory effort. Good air movement, clear throughout to auscultation, no adventitious breath sounds Cardiac: regular rate and rhythm, no murmurs noted Carotid arteries: negative bruit bilat Lab Results Anesthesia Preop Results Results Anesthesia Widget: WBC 5.27 K/ul (4.8-10.8) 05/18/23 Hgb 11.9 g/dl (12.0-16.0) L 05/18/23 Hct 35.7 % (37.0-47.0) L 05/18/23 Plt 281 K/uL (130-400) 05/18/23 Na 138 mmol/L (136-145) 05/18/23 K 4.5 mmol/L (3.5-5.1) 05/18/23 Cl 103 mmol/L (98-107) 05/18/23 CO2 28 mmol/L (21-32) 05/18/23 BUN 21 mg/dl (6-23) 05/18/23 Creat 1.16 mg/dl (0.6-1.2) 05/18/23 Glucose Level 103 mg/dl (70-99(Fasting)) H 05/18/23 PT 10.4 Seconds (9.0-12.0) 05/18/23 PTT 25.5 Seconds (21.0-31.0) 05/18/23 INR 0.9 (0.9-1.1) 05/18/23 Blood Type A Positive 05/18/23 Antibody Screen NEGATIVE 05/18/23 Testing Electrocardiogram Date: 05/18/23 Sinus rhythm with premature atrial complexes, rate 76 bpm Chest X-Ray Date: 05/18/23 No active disease in the chest.
[~2023-05-24 07:30] MED LIST changes: +ACETAMINOPHEN 500 MG TAB PO SCH; +BUPIVACAINE 0.5 % 5 MG/1 ML PF 10ML VIAL ONE; -CZR50 PO; +FAMOTIDINE 20 MG TAB PO SCH; +GABAPENTIN 300 MG CAP PO SCH; -HYDR-5688 PO; -IBUP-1050 PO; +LR 500ML BOLUS, THEN 15ML/HR IV SCH; +LR 60ML/HR IV SCH; -MAGN250T9 PO; -METO-478 PO; +MIDAZOLAM HCL 1 MG/ML 2ML VIAL ONE; -OMEP20TA14 PO; +ORTHO JOINT MIX INFIL SCH; +TRANEXAMIC ACID 1,000 MG **IV Intra-op IV SCH; +TRANEXAMIC ACID 1,000 MG **IV Pre-op IV SCH; +dexAMETHasone 4 MG TAB PO SCH; +fentaNYL citrate PF 100 MCG/2 ML VIAL ONE
--- NOTE | 2023-05-24 08:23 | History & Physical Bridge Note ---
Date of Service May 24, 2023 History & Physical Bridge Note I have examined the patient, reviewed the History & Physical and in the interval since the performance of the History & Physical I have noted the following changes of clinical significance: no changes noted
[2023-05-24] MEDS ORDERED: ORTHO JOINT ANESTHETIC ONE (08:29)
[2023-05-24] MEDS ORDERED: KETAMINE HCL 10MG/ML SYR ONE (08:32)
[2023-05-24] MEDS ORDERED: PROMETHAZINE HCL 12.5 MG in SODIUM CHLORIDE 0.9% 50 ML IV PRN (08:40)
[2023-05-24] MEDS ORDERED: ATROPINE SULFATE 0.1 MG/ML 10ML SYR IV PRN (08:40)
[2023-05-24] MEDS ORDERED: ePHEDrine sulfate 50 MG/ML AMP IV PRN (08:40)
[2023-05-24] MEDS ORDERED: PROPOFOL IV EMULSION 10 MG/ML 20 ML VIAL IV ONE ×4 (09:50→10:20)
[2023-05-24] MEDS ORDERED: ONDANSETRON INJ 2 MG/ML 2 ML VIAL ONE (10:02)
[2023-05-24] MEDS ORDERED: PHENYLEPHRINE HCL 10 MG/ML VIAL ONE (10:02)
[2023-05-24] MEDS ORDERED: GLYCOPYRROLATE 0.2 MG/ML VIAL ONE (10:02)
--- NOTE | 2023-05-24 11:19 | Operative Report ---
PG Post Operative Report Pre & Post Diagnosis Operation Date: 05/24/23 09:00 Pre-Op Diagnosis: Degenerative Joint Disease Right Hip Post-Op Diagnosis: Degenerative Joint Disease Right Hip I identified the patient and participated in the time-out.: Yes Procedure Operation Date: 05/24/23 09:00 Actual Procedures p Right Anterior Total Hip Arthroplasty(Right) - Aguila Saenz DO Surgeon Aguila Saenz DO Well Blower Denny Slater PA-C Estimated Blood Loss 300 Findings Consistent with Post-Op Diagnosis Specimens Right femoral head Description of Procedure Implants used I used a ZimmerBiomet total hip arthroplasty system with a size 3 standard offset Avenir Complete stem, a 50 mm G7 cup with a 25mm screw, an E1 polyet hylene liner, a 36 mm ceramic head with a +3.5 neck. Lizzie arrived at the hospital for the above procedure. She was seen in the preoperative holding area and the operative extremity was identified and signed. She was given a spinal anesthetic, a preoperative antibiotic, and TXA. She was then taken back to the operating room and laid on the table in the supine position. She was given basic sedation. The operative leg was secured to a Puristst leg positioner. The hip was then prepped and draped in sterile fashion. A timeout was done and the patient and the operative extremity was properly identified. An anterior approach was used. Dissection was taken down through the fascia and the tensor muscle belly was retracted laterally and the rectus was retracted medially. The circumflex vessels were identified and ligated. The capsule was then incised and tagged for later repair. The femoral neck was then cut and the femoral head was removed. The acetabulum was exposed. Time was spent doing a complete circumferential labral release. Sequential reaming of the acetabulum up to a size 49 reamer was done. Final reamings were done under fluoroscopy to ensure appropriate version. A Biomet 50 mm G7 cup was then impacted into place. A single 25 mm screw was placed. The E1 polyethylene liner was then snapped into place. Surrounding soft tissues were then injected with 100 cc of an orthopedic pain control cocktail. The proximal femur was then exposed. Sequential broaching up to a size 3 broach was done. Off that broach a size 36 head with a +3.5 neck was trialed. The hip was reduced and fluoroscopic images showed anatomic alignment of the implants in acceptable length. The broach was removed. The final size 3 standard offset Avenir Complete stem was then impacted into place. A ceramic 36 mm head with a +3.5 neck was then impacted onto the stem and the hip was reduced. Final fluoroscopic images showed anatomic alignment of the hip. The capsule was then closed with #1 Vicryl suture. A dilute betadyne lavage was then done for 3 minutes. The joint was then irrigated with normal saline solution. The fascia was closed with #1 PDS suture. Skin was closed with 2-0 Vicryl, iraida, and a Silverlon dressing. She was then transferred to a hospital bed and taken to the post anesthesia care unit in stable condition. She tolerated the procedure well. Denny Slater PA-C, was present for the entire procedure. He was critical for patient positioning, prepping, draping, retraction exposure, wound closure and application of sterile dressing. I attest to the content of the Intraoperative Record and any orders documented therein. Any exceptions are noted below.
--- NOTE | 2023-05-24 11:57 | Fluoroscopy Report ---
FL hip RT 1V CLINICAL HISTORY: RIGHT ANTERIOR HIPright hip arthroplasty. COMPARISON STUDY: 05/18/2023 FLUOROSCOPY TIME: 11.9 seconds FLUOROSCOPY IMAGES: 1 EXPOSURE DOSE: 2.0668 mGy FINDINGS: Right hip arthroplasty demonstrates satisfactory alignment. No acute fracture or unexpected opaque foreign body. Expected postoperative soft tissue swelling with deep tissue air lateral to the right hip. Forceps project over the central pelvis, likely external to the patient. IMPRESSION: Fluoroscopic assistance as above. ACT 112: Negative or not required by law. Electronically signed by: Shahriar Ceja M.D. 05/24/2023 11:56 AM
[2023-05-24] MEDS: fentaNYL citrate PF 100 MCG/2 ML VIAL IV PRN ×4 (12:10→12:35)
[2023-05-24] MEDS ORDERED: bisacodyL 10 MG SUPP PR PRN (14:11)
[2023-05-24] MEDS ORDERED: tiZANidine HCL 4 MG TABLET PO PRN (14:11)
[2023-05-24] MEDS ORDERED: SODIUM CHLORIDE 0.9% 1,000 ML IV SCH (14:11)
[2023-05-24] MEDS ORDERED: HYDROmorphone INJ 0.5 MG/0.5 ML SYR IV PRN (14:11)
[2023-05-24] MEDS ORDERED: MAGNESIUM HYDROXIDE SUSP 30 ML UDC PO PRN (14:11)
[2023-05-24] MEDS ORDERED: ONDANSETRON INJ 2 MG/ML 2 ML VIAL IV PRN (14:11)
[2023-05-24] MEDS ORDERED: METOCLOPRAMIDE HCL INJ 5 MG/ML 2 ML VIAL IV PRN (14:11)
[2023-05-24] MEDS ORDERED: NALOXONE HCL 0.4 MG/1 ML VIAL/CARP IV PRN (14:11)
--- NOTE | 2023-05-24 14:39 | Anesthesiology Progress Note ---
Date of Service May 24, 2023 Anesthesia Post Procedure Vital Signs Vital Signs: Temp Pulse Pulse Resp BP Pulse Ox O2 Del Method 05/24/23 14:29 92 H 16 139/88 97 Room Air 05/24/23 14:16 Nasal Cannula 05/24/23 14:11 36.4 C L 92 H 19 145/87 H 97 Nasal Cannula 05/24/23 13:30 36.5 C 80 15 144/91 H 95 Nasal Cannula 05/24/23 13:05 85 14 139/94 95 Nasal Cannula 05/24/23 12:55 90 12 132/88 100 Nasal Cannula 05/24/23 12:45 75 17 127/95 100 Nasal Cannula 05/24/23 12:35 93 H 12 139/76 92 Room Air 05/24/23 12:25 82 17 124/80 92 Room Air 05/24/23 12:15 88 20 132/99 92 Room Air 05/24/23 12:05 79 18 128/88 95 Room Air 05/24/23 11:55 79 15 137/75 99 Room Air 05/24/23 11:45 91 H 18 139/80 99 Room Air 05/24/23 11:38 36.5 C 90 12 135/104 H 99 Room Air 05/24/23 08:15 36.8 C 91 H 16 137/99 94 Room Air O2 Flow Rate 05/24/23 14:29 05/24/23 14:16 2 05/24/23 14:11 2 05/24/23 13:30 2 05/24/23 13:05 2 05/24/23 12:55 2 05/24/23 12:45 05/24/23 12:35 05/24/23 12:25 05/24/23 12:15 05/24/23 12:05 05/24/23 11:55 05/24/23 11:45 05/24/23 11:38 05/24/23 08:15 Pain Intensity Right Hip: Pain Intensity: 3 Transfer of Care Handoff Completed per policy Notes Mental Status: alert / awake / arousable and participated in evaluation Patient Amnestic to Procedure: Yes Nausea / Vomiting: adequately controlled Pain: adequately controlled Airway Patency, RR, SpO2: stable & adequate BP & HR: stable & adequate Hydration State: stable & adequate Neuraxial Anesthesia: was administered and sensory block is resolving Anesthetic Complications: no major complications apparent and Pt Satisfied with anesthetic care
--- NOTE | 2023-05-24 14:44 | XRay Report ---
XR hip 1V RT w pelvis HISTORY: 67 years-old Female IN PACU - Post Surgical right hip arthroplasty COMPARISON: 01/27/2023 TECHNIQUE: 2 views of the right hip FINDINGS: Left hip arthroplasty again noted. Right hip arthroplasty demonstrates satisfactory alignment. No acu te fracture or unexpected opaque foreign body. Lateral skin iraida are present along with expected p ostoperative soft tissue swelling with deep tissue air. IMPRESSION: Right hip arthroplasty with expected postoperative changes. ACT 112: Negative or not required by law. The above report was generated using voice recognition software. It may contain grammatical, syntax o r spelling errors. Electronically signed by: Shahriar Ceja M.D. 05/24/2023 2:43 PM
[2023-05-24] MEDS: KETOROLAC 30 MG/ML VIAL IV SCH ×2 (14:57→20:38)
[2023-05-24] MEDS: oxyCODONE HCL IR 5 MG TAB (IMMEDIATE RELEASE) PO PRN ×2 (16:18→20:44)
[2023-05-24] MEDS: ceFAZolin 2000MG 2,000 MG/15 ML SYR IV SCH (18:27)
[2023-05-24] MEDS: DOCUSATE SODIUM 100 MG CAP PO SCH (20:39)
[2023-05-24] MEDS ORDERED: SENNA 8.6 MG TAB PO SCH (21:00)
[2023-05-24] MEDS ORDERED: PANTOprazole 40 MG TAB PO SCH (21:00)
[2023-05-25] MEDS: KETOROLAC 30 MG/ML VIAL IV SCH ×2 (01:12→07:34)
[2023-05-25] MEDS: ceFAZolin 2000MG 2,000 MG/15 ML SYR IV SCH (01:13)
[2023-05-25] MEDS: oxyCODONE HCL IR 5 MG TAB (IMMEDIATE RELEASE) PO PRN ×2 (01:15→07:34)
[2023-05-25] MEDS: DOCUSATE SODIUM 100 MG CAP PO SCH (07:35)
[2023-05-25] MEDS ORDERED: dexAMETHasone 4 MG TAB PO SCH (08:00)
[2023-05-25] MEDS ORDERED: METOPROLOL SUCC 25MG EXT REL TAB PO SCH (09:00)
[2023-05-25] MEDS ORDERED: MULTIVITAMIN TAB PO SCH (09:00)
[2023-05-25] MEDS ORDERED: LOSARTAN POTASSIUM 50 MG TAB PO SCH (09:00)
--- NOTE | 2023-05-25 09:18 | Orthopedic Progress Note ---
Date of Service May 25, 2023 Assessment & Plan (1) Status post right hip replacement: Overall she is doing quite well today with good pain control to the right hip. She will work with physical therapy today for ambulation and range of motion exercises. She is on aspirin for DVT prophylaxis. She can be discharged home later today. She will follow-up with orthopedics in 2 weeks for postoperative care. Subjective . Lizzie was seen and examined at bedside this morning in no apparent distress. Overall she states that her pain is much improved to her right hip compared to preoperatively. She still notes some discomfort from the surgical site today. She has been up and ambulating to the bathroom. She has no complaints today. Review of Systems All systems reviewed & are unremarkable except as noted in HPI & below. Physical Exam . On physical examination of the right hip, dressings are clean, dry, and intact. Her leg is out in full extension. She has active plantarflexion dorsiflexion of the right ankle. +2 DP and PT pulses. Less than 2-second capillary refill. Normal sensation. Neurovascular intact. Results & Data Results & Data Laboratory Results . Diagnostic Findings . Postoperative x-rays of the right hip show the prosthesis to be in anatomical alignment with no evidence of fracture complication or loosening. PG Care Time/CCT Total # of Minutes Spent Total Time Spent with Patient: Total time spent is greater than 50% in coordination of care (as documented) at patient's floor/unit and/or counseling patient: Coding Level of Care Code 79913 Post Operative Follow-Up Diagnoses Status post right hip replacement Z96.641
--- NOTE | 2023-05-25 09:20 | Discharge Summary ---
Date of Service May 25, 2023 Principal Diagnosis Same as "Discharge Diagnosis" noted below under Discharge Instructions. Discharge Exam . On physical examination of the right hip, dressings are clean, dry, and intact. Her leg is out in full extension. She has active plantarflexion dorsiflexion of the right ankle. +2 DP and PT pulses. Less than 2-second capillary refill. Normal sensation. Neurovascular intact. Discharge Data Procedures Performed Operation Date: 05/24/23 09:00 Actual Procedures p Right Anterior Total Hip Arthroplasty(Right) - Aguila Saenz DO Ordered Studies 05/24/23 09:00 FL hip RT 1V Routine Hospital Course (1) Status post right hip replacement: On May 24, 2023 Lizzie arrived at [facility] and underwent a right hip replacement without complications. She had a spinal anesthetic. Postoperatively, she was started on aspirin for DVT prophylaxis and transferred to the general orthopedic floor. Her hospital course was uneventful. On postoperative day #1, her vital signs were stable and her pain was well- controlled. She was able to participate well with physical therapy doing ambulation and range of motion exercises. She was then discharged home. She will follow-up with orthopedics in 2 weeks for postoperative care. PG Care Time/CCT Total # of Minutes Spent Total Time Spent with Patient: Total time spent is greater than 50% in coordination of care (as documented) at patient's floor/unit and/or counseling patient: Discharge Plan Discharge Items Patient Disposition: Home - Home Health Services Reason For Visit: POST SURGICAL CARE Discharge Diagnosis: Right hip replacement Activity: Per Instructions section Non-emergency contact: Surgeon Call non-emergency contact if: your wound has increased redness and your wound has increased drainage Follow-up/Referrals: Eber Palacios MD [Primary Care Provider] - Diet: Regular Addtl Attending Provider Instructions: Activity and Therapy Recommendations: * If you are using [facility] then therapy will be provided at your home until they feel you have accomplished all of your goals. * If you are using [facility] then Physical Therapy will be provided until they feel you are ready to start Outpatient Physical Therapy. * If you are not using home therapy then Outpatient Physical Therapy should start about 3-5 days from your day of surgery. Therapy will last about 6-10 weeks * You were shown a series of exercises in the hospital. Do these exercises three times each day including the exercises you were shown in physical therapy. * Get up and walk several times each day.~ For the first four weeks, try not to stand or walk for more than one hour at a time. If you do stand or walk for more than one hour, you will not hurt anything, but your leg will likely swell.~~ * As you feel comfortable, you may change from the walker or crutches to a cane and~then to independent walking. Medications: * Narcotic You will likely be sent home from the hospital with a prescription for the narcotic pain medication that worked best throughout your stay. * Cefadroxil -take the antibiotic twice a day for 10 days to prevent infection. * Aspirin Most patients will be required to take Aspirin 81mg twice a day for 6 weeks after surgery. This is obtained [id number] and a prescription is not necessary. * Other medications may be prescribed for specific circumstances. If you have any questions, please call the office at . * Resume previous home medications unless otherwise instructed TEDs/Elastic Stockings: The white elastic stockings help limit swelling and prevent blood clots from forming in your legs. The more you wear them, the more they work. Wear them for six weeks. Dressing Care: Leave the Silverlon dressing in place for 7 days. After 7 days you may remove the dressing. If the incision is not draining then you may leave the iraida open to air. If there is a little bit of drainage or if the iraida are getting stuck on your clothing then cover the incision with a dry dressing. The iraida will be removed at your 2 week follow-up appointment. Showering: You may shower with the Silverlon dressing in place. Do not let the shower spray hit the dressing directly. Pat the Silverlon dressing dry. If the dressing becomes wet underneath, then simply remove the dressing. Keep the incision dry until you are 7 days out from the day of surgery. After 7 days you may remove the Silverlon dressing and shower with the iraida exposed. Let soapy water run over the iraida and pat them dry. Do not scrub or soak the incision. Things To Watch For: * Drainage from the incision site that occurs more than one week after your surgery. * Increased redness at the incision site. * Fever above 102 degrees Fahrenheit. * Unusual chest pain or shortness of breath. * Call [facility] at with any of the above probl ems Follow-Up Visit: Follow-up with Dr. Saenz's PA (Aguila Watkins) 2-3 weeks after your day of surgery. He will remove your iraida and answer any questions. If you have any additional questions or concerns, Dr Saenz is usually in the office at the same time and will be available An appointment was probably scheduled when you signed-up for surgery in the office. If you have any questions call Office Instructions: More detailed instructions as well as Frequently Asked Questions were provided in a folder by our office when you signed-up for surgery. Please review these instructions when you get home. If you have any further questions or concerns, please feel free to call the office at [phone] Pending Studies at Discharge: No Stand-Alone Forms: [facility] Medications and DC Order Prescriptions: New oxycodone 5 mg Tablet 5 - 10 mg PO Q6 PRN (Reason: pain) Qty: 30 0RF aspirin 81 mg tablet,delayed release (DR/EC) 81 mg PO BID 42 Days Qty: 84 0RF cefadroxil 500 mg capsule 500 mg PO BID 10 Days Qty: 20 0RF Continued losartan 50 mg Tablet 50 mg PO QAM metoprolol succinate 25 mg Tablet Extended Release 24 Hr 25 mg PO QAM omeprazole 20 mg Tablet,Delayed Release (Dr/Ec) 20 mg PO HS tizanidine [Zanaflex] 4 mg tablet 4 mg PO BID PRN (Reason: muscle spasticity) acetaminophen 500 mg capsule 1,000 mg PO BID Discontinued hydrocodone-acetaminophen 5-325 mg tablet 1 tab PO Q6H PRN (Reason: pain) Qty: 15 0RF ibuprofen 200 mg Tablet 200 mg PO Q6H PRN (Reason: Pain) Admission Data Admit Date/Time: 05/24/23 11:25 Attending Provider: Aguila Saenz Admit Provider: Aguila Saenz Primary Care Provider: Eber Palacios Other Interventions: Discharge Summary Assessment (RN) Last Done: 05/25/23 07:28
== END 2023-05-25 10:55 | disposition home health service (06) ==
LOC: 3E 07:30 → ASU 07:30